=== PATIENT | male | born 1940 | race Caucasian/White ===

== ENCOUNTER 2018-06-26 21:11 | Observation (INO) ==
--- NOTE | 2018-06-26 22:15 | Emergency Department Note ---
Disposition Clinical Impression: Syncope Qualifiers: Syncope type: unspecified Qualified Code(s): R55 - Syncope and collapse Chest pain Qualifiers: Chest pain type: unspecified Qualified Code(s): R07.9 - Chest pain, unspecified Disposition: Admitted As Inpatient Condition: Good Time of Disposition: 00:12 General Adult HPI - General Chief complaint: ED Chest Pain Stated complaint: Chest Pain Time Seen by Provider: 06/26/18 21:16 Source: patient, family, EMS Mode of arrival: EMS Limitations: no limitations Nursing Notes Reviewed: Yes Vital Signs Reviewed: Yes - History of Present Illness HPI Narrative: 77-year-old male history of hypertension, atrial fibrillation on Xarelto, and dementia presents to emergency department via EMS after syncopal episode. Patient presents with family. They were there and witnessed the event. Patient was sitting on the bleachers watching his grandson's baseball game as he was eating a hot dog he appear to slump over and passed out. He appeared unresponsive for a minute and then spontaneously regaining consciousness but was acting his normal self. No seizure activity was noted. No fall, head injury or neck pain. There was reports of chest pain but patient denies any chest pain at this time. Reports a similar syncopal episode may be a few years ago this was on a hot day outside during a baseball game as well. Of note the patient reports multiple episodes of loose diarrhea today. Denies any fever cough congestion. Denies any blood in the stool, black tarry stool or hemoptysis. His point of care glucose 172. Pain Scale: 0 - Related Data Allergies Allergy/AdvReac Type Severity Reaction Status Date / Time No Known Allergies Allergy Verified 06/26/18 21:32 All systems ED: reviewed and negative except as stated. Review of Systems: As Per HPI Constitutional: Denies: fever, chills Cardiovascular: Denies: chest pain Respiratory: Denies: dyspnea Gastrointestinal: Reports: diarrhea. Denies: abdominal pain, nausea, vomiting Musculoskeletal: Denies: back pain, neck pain Neurological: Denies: headache, abnormal gait Past Medical History - Past Medical History Attestation: Yes The following information was validated with the patient. Source: patient Medical history: Reports: atrial fibrillation, dementia, hypertension, other Psychiatric history: Reports: no psych history - Social History Smoking Status: Never smoker Smokeless Tobacco Status: No Alcohol use: Reports: none Drug use: Reports: none Physical Exam - General Limitations: no limitations General appearance: alert, in no apparent distress, other (Pleasantly demented) - Head Head exam: atraumatic, normocephalic, normal inspection - Eye Eye exam: Present: normal appearance, PERRL, EOMI. Absent: nystagmus - ENT ENT exam: normal exam, normal oropharynx, mucous membranes moist, TM's normal bilaterally - Neck Neck exam: Present: normal inspection, full ROM, trachea midline - Chest Chest inspection: Present: normal inspection, symmetric chest wall rise. Absent : tenderness - Respiratory Respiratory exam: Present: normal lung sounds bilaterally. Absent: respiratory distress, wheezes - Cardiovascular Cardiovascular exam: Present: regular rate, normal rhythm, normal heart sounds. Absent: systolic murmur, diastolic murmur, other (No murmur with Valsalva) - Abdominal Exam Abdominal exam: Present: soft, Non-Tender, normal bowel sounds. Absent: tenderness, distention, guarding, rebound, rigidity - Extremities Exam Extremities exam: Present: normal inspection, full ROM, normal capillary refill , other (bilateral knee replacement). Absent: tenderness, pedal edema - Neurological Exam Neurological exam: Present: alert, CN II-XII intact - Expanded Neurological Exam Speech: Present: fluid speech Cranial nerves: EOM function (II, III, IV, ): Normal, facial sensation (V): Normal, facial palsy (VII): Normal, gag reflex (IX): Normal, spinal accessory function (XI): Normal, tongue deviation (XII): Normal Motor strength - LUE: 5/5 Motor strength - RUE: 5/5 Motor strength - LLE: 5/5 Motor strength - RLE: 5/5 Upper motor neuron exam: abigail neglect: Absent bilaterally, pronator drift: Absent bilaterally Sensory exam upper extremity: light touch: Normal Sensory exam lower extremity: light touch: Normal Coma Scale Eye Opening: Spontaneous Coma Scale Motor Response: Obeys Commands Coma Scale Verbal Response: Oriented Coma Scale Total: 15 - Psychiatric Psychiatric exam: Present: normal affect, normal mood - Skin Skin exam: Present: warm, dry, intact, normal color Course Course Narrative: Patient presents with a syncopal episode while at rest sitting. Initial complaint of some chest pain currently pain free. Neurologic exam is unremarkable without any focal neural deficits. He is acting at his baseline. His glucose was normal. Syncope workup initiated. - Reevaluation(s) Reevaluation #1: EKG did not reveal any acute ischemic changes. No Brugada pattern, delta waves or signs for LVH. Labs or otherwise unremarkable. Troponin lesson 0.03. Patient has remained on a pigment pusher without any arrhythmias. At this time he would benefit observation for his syncopal episode at rest. Patient and family members are in agreement with this plan. No additional images required as he cannot experience any traumatic events. Impression is chest pain and syncope. - Consultations Consultation #1: Spoke with on-call hospitalist tatyana Hurtado to admit for syncope and chest pain. P excepting hospitalist physician is requesting a CT of the head prior to admission. They will follow up with the images. The patient has been accepted for admission. Time: 23:10 Vital Signs Temperature 97.7 F 06/26/18 21:14 Pulse Rate 65 06/26/18 21:14 Respiratory Rate 20 06/26/18 21:14 Blood Pressure 117/76 06/26/18 21:14 O2 Sat by Pulse Oximetry 91 06/26/18 21:14 Temperature 97.5 F L 06/27/18 00:13 Pulse Rate 67 06/27/18 00:13 Respiratory Rate 18 06/27/18 00:13 Blood Pressure 168/71 06/27/18 00:13 O2 Sat by Pulse Oximetry 94 06/27/18 00:13 Oxygen Delivery Oxygen Delivery Room Air Medical Decision Making - MDM Narrative Medical decision making narrative: Patient was discussed with my attending physician who agrees with ED management and final disposition. They independently evaluated the patient. Please refer to their attestation to this encounter for additional information. This note was generated by [employer] voice recognition software and as a result grammatical or spelling errors may occur using this program. - Medical Records Medical records reviewed: Yes I reviewed the patient's medical records. - Lab Data Lab results reviewed: Yes I reviewed the patient's lab results. Result diagrams: 06/26/18 22:06 06/26/18 22:06 Lab Results 06/26/18 06/26/18 06/26/18 Range/Units 22:06 22:06 22:06 WBC 9.3 (4.3-11.1) K/mcL RBC 5.45 (4.19-5.50) M/mcL Hgb 16.0 (12.9-16.9) g/dL Hct 48.1 (37.5-50.1) % MCV 88.3 (83.0-100.0) fL MCH 29.4 (28.0-33.3) pg MCHC 33.3 (31.6-35.5) g/dL RDW 14.2 (11.5-14.5) % Plt Count 216 (140-400) K/mcL MPV 12.3 (9.4-12.4) fL Immature Gran % 0.6 (0-4) % Seg Neutrophils % 66.6 % Lymphocytes % 18.2 % Monocytes % 9.1 % Eosinophils % 4.5 % Basophils % 1.0 % Neutrophils # 6.2 (1.6-8.9) K/mcL Lymphocytes # 1.7 (0.6-4.6) K/mcL Monocytes # 0.9 (0.0-1.3) K/mcL Eosinophils # 0.4 (0.0-0.6) K/mcL Basophils # 0.1 (0.0-0.2) K/mcL Sodium 137 (136-145) mEq/L Potassium 4.0 (3.5-5.1) mEq/L Chloride 104 (98-107) mEq/L Carbon Dioxide 24 (23-29) mEq/L BUN 21 (8-23) mg/dL Creatinine 1.17 (0.70-1.30) mg/dL Est GFR ( Amer) > 60 (> 60) Est GFR (Non-Af Amer) > 60 (> 60) BUN/Creatinine Ratio 18 (6-26) Glucose 154 H (70-105) mg/dL Calculated Osmolality 290 (280-300) Calcium 9.3 (8.6-10.3) mg/dL Troponin I < 0.03 (< 0.04) ng/mL - Radiology Data Radiology results reviewed: Yes I reviewed the patient's radiology results. Chest X-Ray 06/26/18 21:36 IMPRESSION: No acute abnormality detected. D/ / Gary Pierson MD / Gary Pierson MD Interpreting Provider: Gary Pierson MD - EKG Data EKG #1 EKG attestation: Yes I reviewed and interpreted this EKG. EKG shows normal: sinus rhythm, axis Rate: normal Rhythm: NSR [place]/QRS: normal When compared to previous EKG there are: no significant changes Interpretation: no acute changes Attestation Statement - Attestation Attestation: I examined this patient and my medical decision-making was reviewed with the Resident Physician, Dr. Page. I agree with the documented findings, disposition and treatment plan as described except to the extent set forth below. Patient is a 77-year-old elderly white male who is brought to the emergency department by EMS for syncopal episode that he experienced wall watching a baseball game with his family. Patient was sitting with his family in the stands and suddenly slumped forward, did not fall out of his chair injured himself. Family states they witnessed the syncopal event it was not associated with any tongue biting, urinary incontinence, or seizure activity. Within one to 2 minutes patient awoke and was immediately back to baseline mental status. Patient had mentioned to family that just prior to the episode he was experiencing some chest pain. On arrival patient awake alert and oriented with a GCS of 15 in no acute distress denying any chest pain pressure or heaviness, no other associated symptoms on arrival. Family at bedside with him and feel he is at his baseline mental status, history of mild dementia. I agree with patient's physical exam findings as documented. Vital signs are stable. He is in no acute distress. Patient underwent EKG which shows normal sinus rhythm without acute ischemia. Patient underwent full lab evaluation and chest x-ray all of testing was within normal limits. Patient will be admitted to the hospitalist service for further evaluation and management a did request over the phone for rest to enter an order for a CT noncontrast head which they will follow-up on the results for.
[2018-06-26 22:25] LABS: Basophils # 0.1 K/mcL (0.0-0.2); Eosinophils # 0.4 K/mcL (0.0-0.6); Eosinophils % 4.5 %; Hematocrit 48.1 % (37.5-50.1); Immature Granulocytes % 0.6 % (0-4); Lymphocytes # 1.7 K/mcL (0.6-4.6); Lymphocytes % 18.2 %; Mean Corpuscular HGB Conc 33.3 g/dL (31.6-35.5); Mean Corpuscular Hemoglobin 29.4 pg (28.0-33.3); Mean Corpuscular Volume 88.3 fL (83.0-100.0); Mean Platelet Volume 12.3 fL (9.4-12.4); Monocytes # 0.9 K/mcL (0.0-1.3); Monocytes % 9.1 %; Neutrophils # 6.2 K/mcL (1.6-8.9); Platelet Count 216 K/mcL (140-400); Red Blood Count 5.45 M/mcL (4.19-5.50); Red Cell Distribution Width 14.2 % (11.5-14.5); Segmented Neutrophils % 66.6 %
[2018-06-26 22:42] LABS: BUN/Creatinine Ratio 18 (6-26); Blood Urea Nitrogen 21 mg/dL (8-23); Calcium 9.3 mg/dL (8.6-10.3); Carbon Dioxide 24 mEq/L (23-29); Chloride 104 mEq/L (98-107); Glucose 154 mg/dL (70-105); Osmolality,Calculated 290 (280-300); Sodium 137 mEq/L (136-145); eGFR For Non-African Americans > 60 (> 60)
[2018-06-26] MEDS ORDERED: Aspirin 81 MG TAB.CHEW PO STA (23:05)
--- NOTE | 2018-06-26 23:55 | Internal Med History&Physical ---
Date of Encounter: 06/27/18 Time of Encounter: 23:52 Internal Medicine - H&P: HPI Chief complaint: passing out Admitted From: Home Plans for Post Hospital Care: Home History of present illness: Mr. Bowen is a 77 year old male with a history of hypertension, atrial fibrillation on rivaroxaban and dementia who is brought to the emergency department via EMS after syncopal episode. The patient presents with family as they were present and witnessed the event. The patient was sitting on the bleachers watching his grandson's baseball game as he was eating a hot dog, he appeared to slump over and passed out. He was unresponsive for a minute and then spontaneously regained consciousness but was acting his normal self. No seizure activity was noted. No fall, head injury or neck pain. He denies having had chest pain or dyspnea preceding or afterwards. As per his , the patient had a similar syncopal episode 1 year ago in May on a hot day outside during a baseball game as well. Of note the patient reports multiple episodes of loose diarrhea today and has not been keeping up with fluid intake. He denies any fever, cough, congestion, blood in the stool, black tarry stool or hemoptysis. His point of care glucose 172. Past Med Surg Social Fam HX - Past Medical History Medical history: atrial fibrillation, dementia, hypertension, other Additional medical history: enlarged prostate Psychiatric history: no psych history - Past Surgical History Additional surgical history: left hip replacement, right shoulder replacement, hortensia knee replacement - Social History Smoking Status: Never smoker Smokeless Tobacco Status: No Alcohol use: none Drug use: none Internal Medicine - H&P: Meds 3 Allergy/AdvReac Type Severity Reaction Status Date / Time No Known Allergies Allergy Verified 06/26/18 21:32 All Systems PM: A 10-system review of systems was performed and is negative for pertinent findings except as documented above in the HPI. - Constitutional Vitals: Temp Pulse Resp BP Pulse Ox 97.7 F 66 18 162/79 96 06/26/18 21:14 06/26/18 23:32 06/26/18 23:32 06/26/18 23:32 06/26/18 23:32 Exam: Vitals: Reviewed General: Well-developed elderly male lying comfortably in bed in no acute distress. Skin: Surgical incision scars noted on both knees and right hip and left shoulder from prior orthopedic surgeries. HEENT: Slightly dry oral mucous membranes. No conjunctivae pallor. Neck: No lymphadenopathy. No JVD. No carotid bruits. No palpable thyroid. Chest: Normal thoracic expansion. Normal breath sounds. Clear to auscultation. Heart: Irregular. Abdomen: Non-distended, soft and non-tender to palpation. No peritoneal reaction. Extremities: No clubbing, cyanosis or edema. No calf tenderness. Normal distal pulses. Neurological: Awake, alert and oriented to person, place and time. No focal deficits. Psych: Appropriate affect and coherent speech. Internal Med - H&P Results - Labs CBC & Chem 7: 06/26/18 22:06 06/26/18 22:06 - EKG Data Interpretation IM: normal EKG EKG comments: Normal sinus rhythm with no evidence of atrial fibrillation at this time. 06/26/18 23:57 - Assessment and plan (1) Syncope and collapse Current Visit: Yes Status: Acute Assessment and plan: Unclear etiology. EKG is without ischemic changes and no signs of ongoing arrhythmia. Troponin is negative. He recovered very quickly. Clear this is due to dehydration from poor oral intake coupled with diarrheic episodes or if he had a transient arrhythmia related syncope. -Will obtain a head CT for evaluation especially since the patient is on anticoagulation. -Place on IVF for rehydration. -Will obtain another troponin level check. -Place on telemetry for ongoing monitoring. (2) Hypertension Current Visit: Yes Status: Acute Assessment and plan: Uncontrolled. Will resume oral antihypertensives. Qualifiers: Hypertension type: essential hypertension Qualified Code(s): I10 - Essential (primary) hypertension (3) Atrial fibrillation Current Visit: Yes Status: Chronic Assessment and plan: On rivaroxaban. -Will continue. Qualifiers: Atrial fibrillation type: paroxysmal Qualified Code(s): I48.0 - Paroxysmal atrial fibrillation (4) Dementia Current Visit: Yes Status: Chronic Assessment and plan: Mental status adequate at this time. -Frequent orientation and family members presence will be helpful. Qualifiers: Dementia type: Alzheimer's disease Alzheimer's disease onset: unspecified onset Dementia behavioral disturbance: without behavioral disturbance Qualified Code(s): G30.9 - Alzheimer's disease, unspecified; F02.80 - Dementia in other diseases classified elsewhere without behavioral disturbance (5) DVT prophylaxis Current Visit: Yes Status: Acute Assessment and plan: Will remain on rivaroxaban. - Time Spent With Patient Total time spent is greater than 50% in coordination of care (as documented) at patient's floor/unit and/or counseling patient: 25 - 35 minutes
[2018-06-27] MEDS: Ringers Solution, Lactated 1,000 ML IVC SCH ×2 (00:32→11:00)
[2018-06-27] MEDS ORDERED: *HR* Heparin 5,000 UNIT/ML VIAL SQ SCH (06:00)
--- NOTE | 2018-06-27 09:43 | Internal Med Progress Note ---
Hospitalist Progress Note - Encounter Date of Encounter: 06/27/18 Time of Encounter: 09:43 - Subjective Interval History: Patient seen and examined at bedside presented after experiencing a syncopal episode and was unresponsive for approximately 1 minute and spontaneously regained consciousness. No seizure activity has a history of hypertension recently diagnosed with atrial fibrillation he is on Cymbalta and dementia he did not strike his head. Neurologically he is intact echocardiogram carotid Doppler and MRI are pending. CT of head are negative. Patient given IV fluids overnight urinalysis pending. - Exam Vitals: Temp Pulse Resp BP Pulse Ox 97.9 F 69 16 147/90 92 06/27/18 06:53 06/27/18 06:53 06/27/18 06:53 06/27/18 06:53 06/27/18 06:53 Exam: Skin: Free of rash and discoloration. Eyes: Sclera is white. There is no discharge from eyes. ENMT: Oral/pharyngeal mucosa is normal in appearance. There is no discharge from nose or ears. Respiratory: Normal breath sounds with no crackles and wheezes bilaterally. CV: Heart is regular with no gallop or murmur. GI: Abdomen is flat and soft with no palpable mass or visceromegaly. : There is no tenderness in patient's flanks bilaterally. Neuro exam: He has good strength in upper and lower extremities. He has normal eye movements. Psychiatric: He has normal affect. His thought process is appropriate to the situation. - Assessment and Plan (1) Syncope and collapse Current Visit: Yes Status: Acute Assessment and Plan: Unclear etiology troponins negative unsure if this is related to dehydration or TIA. Patient newly diagnosed with A. fib. We will give IV fluids overnight CT of head is negative we will obtain MRI Carotid Dopplers Orthostatic vital signs Urinalysis Echocardiogram Consult neurology as needed (2) DVT prophylaxis Current Visit: Yes Status: Acute Assessment and Plan: 1 patient is on Xarelto (3) Hypertension Current Visit: Yes Status: Acute Assessment and Plan: Continue home medications (4) Atrial fibrillation Current Visit: Yes Status: Chronic Assessment and Plan: 1 newly diagnosed on Xarelto which we will continue Sinus rhythm at this time rate controlled (5) Dementia Current Visit: Yes Status: Chronic Assessment and Plan: Alert appropriate following simple commands family states he is at baseline at this time. - Time Spent with Patient Total time spent is greater than 50% in coordination of care (as documented) at patient's floor/unit and/or counseling patient: Internal Medicine: Result - Labs CBC & Chem 7: 06/26/18 22:06 06/26/18 22:06 Labs: Cardiac Enzymes 06/27/18 Range/Units 03:45 Troponin I < 0.03 (< 0.04) ng/mL Consult Discharge Plan - Plan Referrals: NONE,PCP [Primary Care Provider] - (3) Hypertension Qualifiers: Hypertension type: essential hypertension Qualified Code(s): I10 - Essential (primary) hypertension (4) Atrial fibrillation Qualifiers: Atrial fibrillation type: paroxysmal Qualified Code(s): I48.0 - Paroxysmal atrial fibrillation (5) Dementia Qualifiers: Dementia type: Alzheimer's disease Alzheimer's disease onset: unspecified onset Dementia behavioral disturbance: without behavioral disturbance Qualified Code(s): G30.9 - Alzheimer's disease, unspecified; F02.80 - Dementia in other diseases classified elsewhere without behavioral disturbance
--- NOTE | 2018-06-27 12:47 | Electrocardiograph Report ---
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
[2018-06-27] MEDS ORDERED: *HR* Rivaroxaban 10 MG TABLET PO SCH (17:00)
--- NOTE | 2018-06-27 17:49 | Event Note ---
Date of Encounter: 06/27/18 Time of Encounter: 17:45 Reported per nursing patient has been short of breath when up ambulating to the bathroom. Lung sounds are clear at this time no wheezing. Noted oxygen saturation is 90-92% at rest. Ambulate patient hallway patient sats 87% on room air. Patient no history of COPD he does not wear any oxygen at home. He is not a smoker. He does wear CPAP at night. Chest x-ray with no acute abnormality. Echo EF of 60% with mild left ventricular diastolic dysfunction normal right ventricular structure and function mild aortic regurgitation and mild pulmonic regurgitation no pulmonary hypertension We will obtain CT of chest
[2018-06-28 00:46] LABS: Bilirubin,Urine Negative (Negative); Blood,Urine Negative (Negative); Clarity,Urine Clear (Clear); Color,Urine Yellow (Yellow); Glucose,Urine (UA) Normal (Normal); Ketones,Urine Negative (Negative); Leukocyte Esterase,Urine Negative (Negative); Nitrite,Urine Negative (Negative); PH,Urine 5.5 pH Units (5.0-8.0); Protein,Urine Negative (Neg-Trace); Specific Gravity,Urine 1.017 (1.010-1.025); Urobilinogen,Urine Normal (Normal)
[2018-06-28 04:27] LABS: Basophils # 0.1 K/mcL (0.0-0.2); Basophils % 1.1 %; Eosinophils # 0.5 K/mcL (0.0-0.6); Eosinophils % 5.3 %; Immature Granulocytes % 0.6 % (0-4); Lymphocytes # 2.3 K/mcL (0.6-4.6); Lymphocytes % 25.4 %; Mean Corpuscular HGB Conc 33.3 g/dL (31.6-35.5); Mean Corpuscular Hemoglobin 28.8 pg (28.0-33.3); Mean Corpuscular Volume 86.5 fL (83.0-100.0); Mean Platelet Volume 12.1 fL (9.4-12.4); Monocytes # 1.1 K/mcL (0.0-1.3); Monocytes % 12.1 %; Neutrophils # 4.9 K/mcL (1.6-8.9); Platelet Count 211 K/mcL (140-400); Red Cell Distribution Width 14.3 % (11.5-14.5); Segmented Neutrophils % 55.5 %
[2018-06-28 04:44] LABS: Chol/HDL Ratio 6.3 (0-4.9)
[2018-06-28 04:45] LABS: BUN/Creatinine Ratio 15 (6-26); Blood Urea Nitrogen 17 mg/dL (8-23); Carbon Dioxide 24 mEq/L (23-29); Chloride 105 mEq/L (98-107); Glucose 109 mg/dL (70-105); Osmolality,Calculated 288 (280-300); Potassium 4.1 mEq/L (3.5-5.1); Sodium 138 mEq/L (136-145); eGFR For Non-African Americans > 60 (> 60)
[2018-06-28] MEDS ORDERED: Aspirin 81 MG TAB.CHEW PO SCH (09:00)
[2018-06-28 11:23] VITALS: BP 154/89
--- NOTE | 2018-06-28 14:10 | Discharge Summary ---
- NOTES TO OUTPATIENT PROVIDER Notes to Outpatient Provider: Bilateral carotids with 40-59% stenosis, should follow with vascular. Date of Encounter: 06/28/18 Time of Encounter: 12:05 - Discharge Diagnosis (1) Syncope and collapse Priority: Primary Status: Acute Assessment and Plan: Likely secondary to dehydration and poor po intake. Pt had not eaten and had very little fluid intake and went to sit in the heat at a baseball game. troponins negative Patient newly diagnosed with A. fib. Carotid Dopplers right carotid bifurcation and ECA has 40-59% stenosis, proximal ICA has nonstenotic plaque. Left carotid artery bifurcation proximal ICA have nonstenotic plaque, ECA has 40-59% stenosis. Patient to follow-up with primary care for referral for vascular surgery. Orthostatic vital signs negative Urinalysis negative for infection. Echocardiogram LVEF of 60%, mild LV DD, mild AR, mild NM. Pt states that he is back to baseline and states that he is normal. Both say he is ready to go home. (2) Hypertension Priority: Secondary Status: Acute Assessment and Plan: Well controlled. Continue home medications. Qualifiers: Hypertension type: essential hypertension Qualified Code(s): I10 - Essential (primary) hypertension (3) Atrial fibrillation Priority: Secondary Status: Chronic Assessment and Plan: newly diagnosed a-fib, on Xarelto which we will continue Sinus rhythm at this time rate controlled Qualifiers: Atrial fibrillation type: paroxysmal Qualified Code(s): I48.0 - Paroxysmal atrial fibrillation (4) Dementia Priority: Secondary Status: Chronic Assessment and Plan: Pt is alert, awake, answers questions appropriately. reports that he is back to baseline. Pt has no recollection of events that brought him here. Qualifiers: Dementia type: Alzheimer's disease Alzheimer's disease onset: unspecified onset Dementia behavioral disturbance: without behavioral disturbance Qualified Code(s): G30.9 - Alzheimer's disease, unspecified; F02.80 - Dementia in other diseases classified elsewhere without behavioral disturbance (5) DVT prophylaxis Priority: Secondary Status: Acute Assessment and Plan: Patient is on Xarelto Hospital course: Mr. Bowen is a 77 year old male with past medical history of dementia, newly diagnosed A. fib, hypertension. Patient presents to the emergency department after syncopal episode pain. reports that he had not had much by mouth fluids, had not had anything to eat, was sitting in the sun. All testing has been negative for any acute processes. Patient also has begun desaturating while walking, unclear etiology. Pt was never a smoker and he has no history of pulmonary disease. Chest CTA was negative for PE or acute process. He did not qualify for home O2 at discharge. He will need to follow- up with vascular surgery for carotid artery stenosis, 40-59% bilaterally. Patient has been treated with IV fluids and has improved. He is alert, awake. Labs and vitals are stable and within normal limits. Patient will be discharged home in stable condition in the care of his . Discharge discussed with: patient, family, nurse - Time Spent with Patient Total time spent providing and/or coordinating discharge services: Less than 30 minutes - Discharge Medications Home Medications: Diclofenac Sodium [Voltaren] 75 mg PO BID 06/27/18 [History] Donepezil HCl 23 mg PO DAILY 06/27/18 [History] Memantine HCl [Memantine HCl ER] 28 mg PO DAILY 06/27/18 [History] Metoprolol [Lopressor] 25 mg PO BID 06/27/18 [History] Tamsulosin [Flomax] 0.4 mg PO DAILY 06/27/18 [History] Aspirin 81 mg PO DAILY tab.chew 06/28/18 [Rx] Rivaroxaban [Xarelto] 20 mg PO 1700 tablet 06/28/18 [Rx] Allergies/Adverse Reactions: 3 Allergy/AdvReac Type Severity Reaction Status Date / Time No Known Allergies Allergy Verified 06/26/18 21:32 Date of admission: 06/26/18 23:20 Primary care physician: PCP NONE Discharging clinician: Lucy Zamora Anticipated date of discharge: 06/28/18 - Constitutional Vitals: Temp Pulse Resp BP Pulse Ox 97.8 F 71 15 154/89 91 06/28/18 11:18 06/28/18 11:18 06/28/18 11:18 06/28/18 11:18 06/28/18 11:18 General appearance: Present: cooperative, A&O X 2, pleasant, no acute distress, answers questions appropriately - Head Head exam: Present: atraumatic, normal inspection, normocephalic - Eye Eye exam: Present: normal appearance, PERRL, conjuntiva pink, sclera anicteric Pupils: Present: PERRL - Neck Neck exam general surgery: Present: supple, trachea midline. Absent: lymphadenopathy - Respiratory Respiratory exam: Present: CTAB. Absent: accessory muscle use, chest wall tenderness, decreased breath sounds, rales, respiratory distress, rhonchi, wheezes - Cardiovascular Cardiovascular exam: Present: RRR, +S1, +S2. Absent: diastolic murmur, gallop, rubs, systolic murmur - GI/Abdominal GI/Abdominal exam: Present: normal bowel sounds, soft. Absent: distended, hepatomegaly, tenderness - Extremities Exam Extremities exam: Present: normal capillary refill, normal inspection, warm, radial pulses palpable and symmetrical. Absent: calf tenderness, cyanotic, pedal edema, tenderness - Neurological Exam Neurological exam: Present: alert, altered, normal gait, no focal deficits. Absent: facial droop, speech deficit - Skin Skin exam: Present: dry, intact, normal color, warm. Absent: rash - Patient Status Disposition: Home, Self-Care Condition: Good Functional capacity at discharge: independent ambulation Overall status at discharge: patient is back to baseline - Discharge Instructions Instructions: Atrial Fibrillation (DC), Chest Pain (DC), Syncope (DC), Chronic Hypertension (DC) Follow Up With: NONE,PCP [Primary Care Provider] - Additional Instructions: Follow up with your PCP in the next 3-5 days for a recheck. Take your medications as directed. Return to the ER as needed for any other problems or concerns, or if your symptoms return or worsen. Resume your normal medications and return to your normal diet and activties as tolerated. - Diet and Activity Activity: increase activity as tolerated Diet: advance to your usual diet, low fat, low cholesterol
== END 2018-06-28 15:28 | disposition home or self-care (01) ==
LOC: 3BNU 21:11 → EMEROO 21:11 → 3BNU 23:49
PROVIDERS: ADMIT Internal Medicine; ATTEND Internal Medicine